=== PATIENT | male | born 1960 | race Caucasian/White ===

== ENCOUNTER 2017-10-16 13:32 | Emergency (ER) | END 2017-10-16 22:38 | disposition home or self-care (01) ==

== ENCOUNTER 2017-10-24 16:10 | Emergency (ER) | END 2017-10-24 20:58 | disposition home or self-care (01) ==

== ENCOUNTER 2017-10-29 12:39 | Emergency (ER) | END 2017-10-29 20:29 | disposition home or self-care (01) ==

== ENCOUNTER 2019-05-22 08:02 | Inpatient (IN) | payer MEDICAID, OTHER ==
[~2019-05-22] VITALS: Ht 170.2 cm; Wt 72.4 kg
[~2019-05-22 08:02] MED LIST: AMLO-218 PO; HYDR25TA6 PO; MTF1000T PO
[2019-05-22] MEDS ORDERED: morphine 2 MG INJ IV PRN (10:30)
[2019-05-22] MEDS ORDERED: HYDROCODONE/APAP (5/325) TAB PO PRN (10:30)
[2019-05-22] MEDS ORDERED: LABETALOL HCL 20MG INJ IV PRN (10:30)
[2019-05-22] MEDS ORDERED: NACL 0.9% 3 ML SYG IV SCH (10:30)
[2019-05-22] MEDS ORDERED: ACETAMINOPHEN 325 MG TAB PO PRN ×2 (10:30)
[2019-05-22] MEDS ORDERED: FAMOTIDINE 20 MG INJ IV SCH ×2 (10:30→11:00)
[2019-05-22] MEDS ORDERED: ONDANSETRON 4 MG INJ IV PRN ×2 (10:30)
[2019-05-22 12:30] VITALS: Ht 170.2 cm; Wt 72.4 kg
[2019-05-22 12:54] VITALS: BP 191/106; PULSE 74; RESP 18
[2019-05-22 13:30] VITALS: BP 178/92; PULSE 73
[2019-05-22] MEDS ORDERED: DEXTROSE 5%-0.45% NACL 1,000 ML IV SCH (13:30)
[2019-05-22 14:00] VITALS: BP 159/88; PULSE 61
[2019-05-22] MEDS ORDERED: PIPER-TAZO 3.375 GM IV (PMX) 100 ML IVPB SCH (14:00)
[2019-05-22] MEDS ORDERED: hydrALAzine 20 MG INJ IV PRN (14:30)
[2019-05-22 15:13] VITALS: BP 140/80; PULSE 69; RESP 18
[2019-05-22] MEDS ORDERED: INSULIN ASPART [NOVOLOG] 3 ML PEN SC SCH (17:55)
[2019-05-22] MEDS ORDERED: INSULIN GLARGINE [LANTus] (100 UNITS/ML) SYG SC SCH (20:00)
[2019-05-23] MEDS ORDERED: ACCU-CHEK XX SCH (02:00)
== END 2019-05-22 17:58 | disposition left against medical advice (07) | DRG 392 ==
LOC: E/R 08:02 → TEL 10:07 → OBSVTOIN 13:27
PROVIDERS: ADMIT Internal Medicine; ATTEND Internal Medicine
DX: K57.32 Diverticulitis of large intestine without perforation or abscess without bleeding (principal); N17.9 Acute kidney failure, unspecified; E11.22 Type 2 diabetes mellitus with diabetic chronic kidney disease; F17.210 Nicotine dependence, cigarettes, uncomplicated; I12.9 Hypertensive chronic kidney disease with stage 1 through stage 4 chronic kidney disease, or unspecified chronic kidney disease; N18.9 Chronic kidney disease, unspecified; N20.0 Calculus of kidney; K76.0 Fatty (change of) liver, not elsewhere classified; Z79.4 Long term (current) use of insulin; Z53.21 Procedure and treatment not carried out due to patient leaving prior to being seen by health care provider
CPT/HCPCS: 36415; 71045; 74176; 80048; 82550; 82553; 82962; 83880; 84484; 85025; 93005; 93306; G0378; J1815; J2270; J2405; J2543; J7042